=== PATIENT | female | born 1955 | race Caucasian/White ===

== ENCOUNTER → 2016-09-17 | Outpatient (CLI) | payer MEDICARE, BC, OTHER | LOC: RAD 12:22 | PROVIDERS: ATTEND Anesthesiology | DX: M54.5 Low back pain (principal); D18.09 Hemangioma of other sites | CPT/HCPCS: 72146 ==

== ENCOUNTER 2016-10-26 02:43 | Inpatient (IN) | payer MEDICARE, BC, OTHER ==
[2016-10-26] MEDS ORDERED: NORMAL SALINE 1000 ML 1,000 ML IV PRN (02:51)
--- NOTE | 2016-10-26 02:54 | ER Document Report ---
ED General - General Chief Complaint: Altered Mental Status Stated Complaint: ALTERED MENTAL STATUS Time Seen by Provider: 10/26/16 02:51 Notes: Patient is a 61-year-old female who presents with complaints of altered mental status. She was admitted recently to [facility]. At that time she was admitted because she was having some difficulty breathing and hypotension. While she was admitted she did bump her cardiac enzymes. They did do a cardiac catheter which was negative and she did not require any stenting. Patient was eventually discharged just under a week ago. says that since discharge she has continued to gradually worsen her mental status. He said tonight hermit status became even worse therefore called a months. Plan was arrived patient was found to be poorly responsive and to have a very thready pulse and was hypotensive. They started giving the patient IV fluid boluses and brought her straight to the ER. He said in route the patient started to awaken somewhat IV but boluses. She does try to talk some but does not make a lot of sense. Currently the patient follows all my commands properly. She is awake and alert. She does have some difficulty speaking. says the difficulty speaking has been ongoing for over a day. She is not on any blood thinning medications. He does not think she had a fever at home. TRAVEL OUTSIDE OF THE [place] IN LAST 30 DAYS: No - Related Data Allergies/Adverse Reactions: ciprofloxacin [From Cipro] Allergy (Verified 03/25/16 15:43) haloperidol [From Haldol] Allergy (Verified 03/25/16 15:43) levofloxacin [From Levaquin] Allergy (Verified 03/25/16 15:43) quetiapine [From Seroquel] Allergy (Verified 03/25/16 15:43) Home Medications: Current Home Medications Albuterol Sulfate [Proair HFA] 2 puff IH Q4HP PRN 10/26/16 [History] Aspirin [Aspirin 81 mg Chewable Tablet] 81 mg PO QAM 10/26/16 [History] Atorvastatin Calcium [Lipitor 80 mg Tablet] 80 mg PO QPM 10/26/16 [History] Cyanocobalamin (Vitamin B-12) [Vitamin B-12 Inj 1000 Mcg/1 ml Vial] 1,000 mcg IM .MONTHLY 10/26/16 [History] Cyclobenzaprine HCl [Flexeril 10 mg Tablet] 10 mg PO TIDP PRN 10/26/16 [History] Doxepin HCl [Silenor] 6 mg PO QHS 10/26/16 [History] Esomeprazole Mag Trihydrate [Nexium] 40 mg PO QAM 10/26/16 [History] Fluticasone/Salmeterol [Advair 500-50 Diskus 28 Dose] 1 inh IH Q12 10/26/16 [ History] Furosemide [Lasix] 20 mg PO DAILY 10/26/16 [History] Hydroxyzine Pamoate [Vistaril 50 mg Capsule] 50 mg PO Q6HP PRN 10/26/16 [History ] Levalbuterol Tartrate [Xopenex Hfa] 1 puff IH Q4HP PRN 10/26/16 [History] Linaclotide [Linzess] 145 mcg PO DAILY 10/26/16 [History] Lisinopril [Zestril] 2.5 mg PO DAILY 10/26/16 [History] Loratadine [Claritin 10 mg Tablet] 10 mg PO DAILY 10/26/16 [History] Losartan Potassium [Cozaar 50 mg Tablet] 50 mg PO DAILY 10/26/16 [History] Magnesium Oxide [Mag-Ox 400 mg Tablet] 400 mg PO DAILY 10/26/16 [History] Metformin HCl [Glucophage] 500 mg PO ACBRKFST 10/26/16 [History] Metoprolol Tartrate [Lopressor 25 mg Tablet] 25 mg PO Q12 10/26/16 [History] Montelukast Sodium [Singulair 10 mg Tablet] 10 mg PO DAILY 10/26/16 [History] Ondansetron HCl [Zofran] 8 mg PO TIDP PRN 10/26/16 [History] Potassium Chloride [K-Tab ER] 8 meq PO DAILY 10/26/16 [History] Pramipexole Di-HCl [Mirapex 0.5 Mg Tablet] 0.5 mg PO QHS 10/26/16 [History] Tizanidine HCl [Zanaflex 4 Mg Tablet] 4 mg PO Q6 10/26/16 [History] Tramadol HCl [Ultram] 100 mg PO BIDP PRN 10/26/16 [History] Past Medical History - Social History Smoking Status: Unknown if Ever Smoked Frequency of alcohol use: None Drug Abuse: None Family History: Reviewed & Not Pertinent - Past Medical History Cardiac Medical History: Reports: Hx Hypertension Pulmonary Medical History: Reports: Hx COPD Neurological Medical History: Reports: Hx Cerebrovascular Accident, Hx Seizures - Secondary to abrupt cessation of benzodiazepines Psychiatric Medical History: Reports: Hx Depression Past Surgical History: Reports: Hx Abdominal Surgery - gastric bypass, hernia repair, Hx Gastric Bypass Surgery, Hx Hysterectomy Review of Systems - Review of Systems Notes: My Normal Review Basic REVIEW OF SYSTEMS: CONSTITUTIONAL : Denies fever, chills, or sweats. Denies recent illness. EENT: Denies eye, ear, throat, or mouth pain or symptoms. Denies nasal or sinus congestion. CARDIOVASCULAR: Denies chest pain. RESPIRATORY: Some cough at home. GASTROINTESTINAL: Denies abdominal pain. Denies nausea, vomiting, or diarrhea. Denies constipation. Last BM: GENITOURINARY: Denies difficulty urinating, painful urination, burning, frequency, or blood in urine. MUSCULOSKELETAL: Denies neck or back pain or joint pain or swelling. SKIN: Denies rash or skin lesions. HEMATOLOGIC : Denies easy bruising or bleeding.. NEUROLOGICAL: Altered mental status. ALL OTHER SYSTEMS REVIEWED AND NEGATIVE. Physical Exam - Vital signs Vitals: Temp Pulse Resp BP Pulse Ox 100.8 F H 63 17 65/37 L 100 10/26/16 02:51 10/26/16 02:51 10/26/16 02:51 10/26/16 02:51 10/26/16 02:51 - Notes Notes: General Appearance: Awake and alert but weak appearing. Patient tries to talk but most words do not make sense. Vitals: reviewed, See vital signs table. Head: no swelling or tenderness to the head Eyes: PERRL, EOMI, Conjuctiva clear Mouth: No decreasd moisture Neck: Supple, no neck tenderness, No thyromegaly Lungs: No wheezing, No rales, No rhonci, No accessory muscle use, good air exchange bilaterally. Heart: Normal rate, Regular rythm, No murmur, no rub Abdomen: Normal BS, soft, No rigidity, No abdominal tenderness, No guarding, no rebound, no abdominal masses, no organomegaly Extremities: strength 5/5 in all extremities, good pulses in all extremities, no swelling or tenderness in the extremities, no edema. Skin: warm, dry, appropriate color, no rash Neuro: Speech is somewhat garbled. Patient does follow commands appropriately. She has good strength in all 4 extremities. Cranial nerves II through XII are intact. Course - Re-evaluation Re-evalutation: 10/26/16 03:45 Patient has to hypotension despite fluid boluses. She does have some JVD. I did do a bedside ultrasound looking for evidence pericardial effusion. I do not see evidence of obvious large cardiac effusion onbedside ultrasound. I did do a quick portable chest x-ray. This no evidence pneumothorax. I have just placed a central line. We have started patient the Levophed. Patient's blood pressure is responding well to Levophed. Her potassium is elevated. We have given her calcium gluconate. I also ordered insulin glucose as well as bicarbonate. 10/26/16 05:46 Now the patient's blood pressures improved with the pressors she is awake and alert and able answer all questions properly. She denies any pain. She denies headache or neck stiffness. She didn't tell me exactly where she is at her name and what day it is. She clear 5 the as well that this is happened to her a few times in the past. She will get very low blood pressure and confused. She says sometimes his right pneumonia. Other times related to urinary tract infection. Currently I do not see evidence of pneumonia or UTI. We will cover broad-spectrum antibiotics because she does have a low-grade fever in conjunction with the hypotension. I do not feel she is a lumbar puncture as her symptoms have been gradually worsening over several days and she currently has no altered mental status and is able to answer questions appropriately and denies headache or neck pain. - Vital Signs Vital signs: Temp Pulse Resp BP Pulse Ox 98.1 F 94 21 H 98/55 L 99 10/26/16 23:44 10/26/16 20:00 10/26/16 22:37 10/26/16 22:34 10/26/16 22:37 - Laboratory Result Diagrams: 10/26/16 02:55 10/26/16 15:25 Laboratory results interpreted by me: 10/26/16 10/26/16 10/26/16 02:55 02:55 02:55 WBC 11.1 H RBC 3.31 L Hgb 10.1 L Hct 30.0 L Lymphocytes % (Manual) 10 L Abs Neuts (Manual) 8.9 H Sodium 131.6 L Potassium 6.7 H* Chloride Carbon Dioxide 19 L BUN 41 H Creatinine 1.95 H Est GFR ( Amer) 32 L Est GFR (Non-Af Amer) 26 L Calcium 7.6 L AST 46 H Creatine Kinase 230 H CK-MB (CK-2) 11.00 H Total Protein 5.1 L Albumin 2.4 L Urine Glucose (UA) 10/26/16 10/26/16 05:14 06:20 WBC RBC Hgb Hct Lymphocytes % (Manual) Abs Neuts (Manual) Sodium 134.5 L Potassium Chloride 108 H Carbon Dioxide 19 L BUN 33 H Creatinine 1.53 H Est GFR ( Amer) 42 L Est GFR (Non-Af Amer) 35 L Calcium 8.3 L AST Creatine Kinase CK-MB (CK-2) Total Protein Albumin Urine Glucose (UA) 50 H - EKG Interpretation by Me Additional EKG results interpreted by me: 10/26/16 02:53 EKG is reviewed and interpreted by me. EKG shows normal sinus rhythm with rate of [address] segment elevation or depression. Patient does have some T- wave inversions in the lateral leads including I, aVL, and V6. MA interval, QRS duration, QTC intervals are within normal range. Old EKG for comparison is from 10/15/2015. 10/26/16 02:55 - Transfer of Care Notes: 10/26/16 06:23 Patient is much improved appearing. She is awake alert and answering all questions properly. Her repeat chest x-ray shows evidence of possible pneumonia. I will treat her as such. I did speak with the hospitalist who agrees to admit the patient. Dictation of this chart was performed using voice recognition software; therefore, there may be some unintended grammatical errors. 10/27/16 01:47 Procedures - Central Line Left Internal jugular Consent obtained: Yes - emergent Central line pre-insertion: Sterile PPE donned, Chloraprep applied, Sterile drapes applied Anesthetic type: 1% Lidocaine mL's of anesthesia: 3 CM at insertion site: 17 Line secured with sutures: Yes Central line post-insertion: Blood return from lumens, Biopatch applied, Sutured , Sterile dressing applied, Position confirmed w/ CXR Number of attempts: 1 Complications: No Critical Care Note - Critical Care Note Total time excluding time spent on procedures (mins): 45 Comments: Critical care time for this patient not including time spent on procedures approximately 45 minutes due to recurrent evaluations and treatment of hypotension and hyperkalemia. Discharge - Discharge Clinical Impression: Hyperkalemia Pneumonia Qualifiers: Pneumonia type: due to unspecified organism Laterality: unspecified laterality Lung location: unspecified part of lung Qualified Code(s): J18.9 - Pneumonia, unspecified organism Hypotension Qualifiers: Hypotension type: unspecified hypotension type Qualified Code(s): I95.9 - Hypotension, unspecified Condition: Stable Disposition: ADMITTED INPATIENT Admitting Provider: Hospitalist Unit Admitted: ICU
[2016-10-26] MEDS ORDERED: DEXTROSE 5%-WATER 250 ML with NOREPINEPHRINE BITARTRATE 4 MG IV PRN ×4 (03:14→07:52)
[2016-10-26] MEDS ORDERED: NOREPINEPHRINE BITARTRATE INJ/PF 4 MG/4 ML SDV IV ONE (03:16)
[2016-10-26 03:25] LABS: ALANINE AMINOTRANSFERASE 37 U/L (9-52); ALBUMIN 2.4 g/dL (3.5-5.0); ALKALINE PHOSPHATASE 73 U/L (38-126); ANION GAP 10 (5-19); ASPARTATE AMINO TRANSFERASE 46 U/L (14-36); BILIRUBIN,DIRECT 0.4 mg/dL (0.0-0.4); BILIRUBIN,TOTAL 0.5 mg/dL (0.2-1.3); BLOOD UREA NITROGEN 41 mg/dL (7-20); CALCIUM 7.6 mg/dL (8.4-10.2); CARBON DIOXIDE 19 mmol/L (22-30); CHLORIDE 103 mmol/L (98-107); CREATINE KINASE 230 U/L (30-135); CREATININE RESULT 1.95 mg/dL (0.52-1.25); GLUCOSE 85 mg/dL (75-110); SODIUM 131.6 mmol/L (137-145); TOTAL PROTEIN 5.1 g/dL (6.3-8.2)
[2016-10-26 03:30] LABS: POTASSIUM 6.7 mmol/L (3.6-5.0)
[2016-10-26] MEDS ORDERED: CALCIUM GLUCONATE 1000 MG/10 ML INJ IV ONE (03:32)
[2016-10-26 03:41] LABS: TROPONIN I 0.045 ng/mL
[2016-10-26] MEDS ORDERED: DEXTROSE 50%-WATER 25 GM/50 ML DISP.SYRIN IV ONE (03:44)
[2016-10-26] MEDS ORDERED: INSULIN REG, HUMAN 100 UNIT/ML 3 ML VIAL (PYX) IV ONE (03:44)
[2016-10-26] MEDS ORDERED: SODIUM BICARBONATE 8.4% INJ 50 MEQ/50 ML DISP.SYRIN IV ONE (03:45)
[2016-10-26 03:49] LABS: HEMOGLOBIN 10.1 g/dL (12.0-15.5); HGB HCT DIFFERENCE 0.3; MEAN CORPUSCULAR HEMOGLOBIN 30.3 pg (27.0-33.4); MEAN CORPUSCULAR HGB CONC 33.5 g/dL (32.0-36.0); MEAN CORPUSCULAR VOLUME 91 fl (80-97); RED BLOOD COUNT 3.31 10^6/uL (3.72-5.28); RED CELL DISTRIBUTION WIDTH 13.5 % (11.5-14.0); WHITE BLOOD COUNT 11.1 10^3/uL (4.0-10.5)
[2016-10-26 03:52] LABS: BAND NEUTROPHILS % (MANUAL) 5 % (3-5); BASOPHILS % (MANUAL) 0 % (0-2); EOSINOPHILS % (MANUAL) 0 % (0-6); LYMPHOCYTES % (MANUAL) 10 % (13-45); TOTAL CELLS COUNTED 100
[2016-10-26 03:53] LABS: RBC MORPHOLOGY COMMENT NORMO-CYTIC/CHROMIC; TOXIC GRANULATION 1+; TOXIC VACUOLATION PRESENT
[2016-10-26 05:33] LABS: APPEARANCE,URINE CLEAR; BILIRUBIN,URINE NEGATIVE (NEGATIVE); GLUCOSE, URINE 50 mg/dL (NEGATIVE); KETONES,URINE NEGATIVE (NEGATIVE); LEUKOCYTE ESTERASE,URINE NEGATIVE (NEGATIVE); NITRITE,URINE NEGATIVE (NEGATIVE); PROTEIN,URINE NEGATIVE (NEGATIVE); URINE SPECIFIC GRAVITY 1.004; UROBILINOGEN,URINE NEGATIVE mg/dL (<2.0)
[2016-10-26] MEDS ORDERED: CEFTRIAXONE INJ 1000 MG VIAL IV ONE (05:43)
[2016-10-26] MEDS ORDERED: PIPERACILLIN/TAZOBACTAM 3.375 GM VIAL IV ONE (05:45)
[2016-10-26] MEDS ORDERED: VANCOMYCIN HCL INJ 1000 MG VIAL IV ONE (05:46)
[2016-10-26 06:43] LABS: ANION GAP 8 (5-19); BLOOD UREA NITROGEN 33 mg/dL (7-20); CALCIUM 8.3 mg/dL (8.4-10.2); CARBON DIOXIDE 19 mmol/L (22-30); CHLORIDE 108 mmol/L (98-107); CREATININE RESULT 1.53 mg/dL (0.52-1.25); GLUCOSE 100 mg/dL (75-110); SODIUM 134.5 mmol/L (137-145)
[2016-10-26 06:50] LABS: POTASSIUM 4.9 mmol/L (3.6-5.0)
[2016-10-26] MEDS ORDERED: GUAIFENESIN SYRP 200 MG/10 ML UDC PO PRN (07:42)
[2016-10-26] MEDS ORDERED: ALBUTEROL SULFATE 0.083% NEB 2.5 MG/3 ML AMPUL NEB PRN (07:42)
[2016-10-26] MEDS ORDERED: GLUCAGON,HUMAN RECOMB 1 MG INJ IM PRN (07:45)
[2016-10-26] MEDS ORDERED: DEXTROSE 40% GEL 15 GM TUBE PO PRN ×2 (07:45)
[2016-10-26] MEDS ORDERED: DEXTROSE 50%-WATER 25 GM/50 ML DISP.SYRIN IV PRN ×2 (07:45)
[2016-10-26] MEDS ORDERED: VANCOMYCIN HCL 0 MG in DEXTROSE 5%-WATER 250 ML IV NR (08:00)
[2016-10-26] MEDS ORDERED: PHARMACY COMMUNICATION ORDER MC SCH (08:00)
[2016-10-26] MEDS ORDERED: NORMAL SALINE 1000 ML 1,000 ML IV ONE (08:29)
[2016-10-26 09:03] LABS: ADD ON TESTING BLD IN LAB ACKNOWLEDGE
[2016-10-26] MEDS: FAMOTIDINE INJ/PF 20 MG/2 ML SDV IV SCH (09:08)
[2016-10-26] MEDS: METHYLPREDNISOLONE INJ 40 MG/1 ML SDV IV SCH ×2 (09:09→17:17)
[2016-10-26] MEDS: IPRATROPIUM/ALBUTEROL 0.5-2.5 MG/3 ML AMPUL NEB SCH ×3 (09:10→19:57)
[2016-10-26 09:51] LABS: CREATINE KINASE MB 11.1 ng/mL (<4.55); TROPONIN I 0.036 ng/mL
[2016-10-26] MEDS ORDERED: AZITHROMYCIN 500 MG in DEXTROSE 5%-WATER 250 ML IV SCH (10:00)
[2016-10-26 10:09] LABS: MAGNESIUM 1.6 mg/dL (1.6-2.3)
--- NOTE | 2016-10-26 10:09 | PDOC H&P ---
History of Present Illness Admission Date/PCP: 10/26/16 06:41 STEPHY MARTINEZ, [facility] Patient complains of: altered mental status History of Present Illness: ANNA JOHNSON is a 61 year old female with underlying COPD, and a somewhat complicated recent medical history who presents to the emergency room for evaluation of above complaint. Patient has been discussed with emergency room physician who evaluated the patient. According to emergency room staff, including physician, along with , who is present at her side with her approval, patient has dramatically improved after IV fluid and vasopressor infusion, raising her blood pressure to a much more acceptable level. While she doesn't remember the events that led to her coming to the emergency room, she is much more cognizant of her chronic medical issues. Hospitalized at [facility] the through the of last month with final diagnoses including likely Takotsubo cardiomyopathy, and possible Type 2 NSTEMI, with echocardiogram revealing a 25-30% ejection fraction , and cardiac catheterization revealing basically clean vessels, and an ejection fraction of 37%. She was admitted at that time for dizziness lightheadedness, presyncope and syncopal episodes, along with a fever of 102.1. History and physical and discharge summary have been reviewed. Since that hospital stay she has had gradually worsening mental status, with intermittent confusion and decreased responsiveness. The evening of the , she was noted to be quite poorly responsive. Upon EMS arrival, was noted to have a thready pulse with hypotension. Blood Pressure and mental status improved somewhat with intravenous fluid boluses en route to the ER, and, as noted above, her overall clinical appearance and responsiveness have improved quite remarkably with above treatment. She's had nausea and vomiting 2 over the last day or so. No diarrhea or dysuria, chest or abdominal pain. No fever or chills. She does describe a several day history of a gradually worsening cough, productive of green sputum. She has when necessary nasal cannula oxygen at home , 2-4 L. She is currently resting quietly, complaining of only persistence of her mild chronic back pain. Laboratory results are listed in [employer] and are reviewed. X-ray summary results are listed below, with full report(s) reviewed. . EKG reviewed. And compared to a tracing from October 14 of last year. Social history/personal habits: . Has children. Retired. No use of alcohol tobacco or illicit drugs. Allergies/adverse reactions are listed in [employer] and are reviewed. Home medications Home medications initially autopopulated into [employer] may not accurately reflect patient's true medications, dosages, and/or frequencies. cardiac cath tech to reconcile medications. Unfortunately, patient uncertain of all her medications/dosages/frequencies. REVIEW OF SYSTEMS: See history and present illness. No further information available this point in time. PHYSICAL EXAMINATION: 5 feet 2 inches tall. 65.1 kg. Blood pressure 96/55, with Levophed at 10 mcg/ m. She has received 2-1/2 L of crystalloid. Pulse 76 and regular. 99% saturation on 2 L oxygen per nasal cannula. Respirations are 23 and unlabored. Temperature 97.9; 100.8 earlier during her ER visit. Slightly overweight, otherwise well-nourished well-developed though somewhat chronically ill-appearing female who appears perhaps a bit older than her stated age. Appears somewhat fatigued. Appears to feel a bit under the weather, so to speak. Pleasant awake alert and cooperative otherwise. Mildly anxious, without agitation. is present at her side; patient approves. Female emergency room nurse Jennifer is present. Skin is warm and dry. No grossly obvious evidence of rash in areas of skin examined. No subcutaneous nodules palpated. ENT: Hearing grossly normal to normal conversation. Tongue midline on protrusion pink and slightly tacky. Eyes: No scleral icterus. Pupils equal and reactive to light at 4 mm. Berthold conjunctivae. Raccoon eyes. Neck is supple and nontender to gentle active range of motion and palpation. Midline trachea. No palpable thyroid nodule mass enlargement or tenderness. Lymphatic: No palpable cervical or clavicular nodes. Neck and lymphatic exams limited by patient body habitus. Exam also limited by intravenous catheters, including a right external jugular and left internal jugular central line, with their associated dressings. Psychiatric: Reasonable insight into chronic medical issues. . See history and present illness. Lungs: Auscultation reveals equal breath sounds bilaterally. No use of accessory respiratory muscles. Has bilateral coarse breath sounds, more prominent on the left. Cardiovascular: Heart regular rate and rhythm, without gallop murmur or rub. No abdominal aortic bruits. No ankle or pedal edema. Faintly palpable dorsalis pedis pulses. Not able to evaluate for carotid bruit due to above- noted central lines with associated dressings. Abdomen: soft, slightly, distended nontender with positive bowel sounds. Unable to adequately evaluate abdomen for masses or organomegaly due to distention. Extremities: Feet are warm and dry. No calf tenderness to compression. No grossly obvious visual evidence of calf swelling. Gentle manipulation of lower extremities fails to reveal any obvious evidence of injury or instability to knees hips or ankles. Neurologic: Moves upper extremities grossly normally. Patellar reflexes absent. Absent Babinski. Light touch is intact at feet. Dorsiflexion and plantarflexion of feet 5 / 5 and symmetric. Past Medical History Cardiac Medical History: Reports: Congestive Heart Failure, Myocardial Infarction, Hypertension Denies: DVT, Hyperlipidema, Pulmonary Embolism Pulmonary Medical History: Reports: Chronic Obstructive Pulmonary Disease (COPD) , Sleep Apnea - Can't use CPAP due to underlying achalasia. EENT Medical History: Reports: Eyes - Glasses, Ears - Partial hearing loss Denies: Throat Neurological Medical History: Reports: Ischemic CVA - Uncertain if residual after effects., Seizures - Secondary to abrupt cessation of benzodiazepines and/ or use of Haldol. Denies: Hemorrhagic CVA Endocrine Medical History: Reports: Diabetes Mellitus Type 2 Denies: Diabetes Mellitus Type 1, Hyperthyroidism, Hypothyroidism Renal/ Medical History: Reports: Other - Frequent urinary tract infections. 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 Denies: Hepatitis B, Hepatitis C Past Surgical History Past Surgical History: Reports: Gastric Bypass Surgery, Hysterectomy Social History Information Source: Patient, Relative - , Emergency Med Personnel, [facility] Records Lives with: Spouse/Significant other Smoking Status: Unknown if Ever Smoked Frequency of Alcohol Use: None Drugs: None Hx Prescription Drug Abuse: No - Advance Directive Resuscitation Status: Full Code Surrogate healthcare decision maker:: Family History Family History: Reviewed & Not Pertinent Parental Family History Reviewed: Yes - father in an accident; mother of heart attack. Children Family History Reviewed: Yes - Son with testicular cancer. Sibling(s) Family History Reviewed.: Yes - Brother with diabetes mellitus Medication/Allergy Home Medications: Albuterol Sulfate [Proair HFA] 2 puff IH Q4HP PRN 10/26/16 Aspirin [Aspirin 81 mg Chewable Tablet] 81 mg PO QAM 10/26/16 Atorvastatin Calcium [Lipitor 80 mg Tablet] 80 mg PO QPM 10/26/16 Cyanocobalamin (Vitamin B-12) [Vitamin B-12 Inj 1000 Mcg/1 ml Vial] 1,000 mcg IM .MONTHLY 10/26/16 Cyclobenzaprine HCl [Flexeril 10 mg Tablet] 10 mg PO TIDP PRN 10/26/16 Doxepin HCl [Silenor] 6 mg PO QHS 10/26/16 Esomeprazole Mag Trihydrate [Nexium] 40 mg PO QAM 10/26/16 Fluticasone/Salmeterol [Advair 500-50 Diskus 28 Dose] 1 inh IH Q12 10/26/16 Furosemide [Lasix] 20 mg PO DAILY 10/26/16 Hydroxyzine Pamoate [Vistaril 50 mg Capsule] 50 mg PO Q6HP PRN 10/26/16 Levalbuterol Tartrate [Xopenex Hfa] 1 puff IH Q4HP PRN 10/26/16 Linaclotide [Linzess] 145 mcg PO DAILY 10/26/16 Lisinopril [Zestril] 2.5 mg PO DAILY 10/26/16 Loratadine [Claritin 10 mg Tablet] 10 mg PO DAILY 10/26/16 Losartan Potassium [Cozaar 50 mg Tablet] 50 mg PO DAILY 10/26/16 Magnesium Oxide [Mag-Ox 400 mg Tablet] 400 mg PO DAILY 10/26/16 Metformin HCl [Glucophage] 500 mg PO ACBRKFST 10/26/16 Metoprolol Tartrate [Lopressor 25 mg Tablet] 25 mg PO Q12 10/26/16 Montelukast Sodium [Singulair 10 mg Tablet] 10 mg PO DAILY 10/26/16 Ondansetron HCl [Zofran] 8 mg PO TIDP PRN 10/26/16 Potassium Chloride [K-Tab ER] 8 meq PO DAILY 10/26/16 Pramipexole Di-HCl [Mirapex 0.5 Mg Tablet] 0.5 mg PO QHS 10/26/16 Tizanidine HCl [Zanaflex 4 Mg Tablet] 4 mg PO Q6 10/26/16 Tramadol HCl [Ultram] 100 mg PO BIDP PRN 10/26/16 Allergies/Adverse Reactions: ciprofloxacin [From Cipro] Allergy (Verified 03/25/16 15:43) haloperidol [From Haldol] Allergy (Verified 03/25/16 15:43) levofloxacin [From Levaquin] Allergy (Verified 03/25/16 15:43) quetiapine [From Seroquel] Allergy (Verified 03/25/16 15:43) Physical Exam Vital Signs: Temp Pulse Resp BP Pulse Ox 97.9 F 63 17 98/59 L 99 10/26/16 04:00 10/26/16 02:51 10/26/16 05:33 10/26/16 05:31 10/26/16 05:33 Results Impressions: Head CT 10/26/16 02:52 IMPRESSION: NORMAL BRAIN CT WITHOUT CONTRAST. Chest X-Ray 10/26/16 04:25 IMPRESSION: Mild mixed interstitial and airspace opacity may indicate pulmonary edema or pneumonia. Left central line. Assessment & Plan - Diagnosis (1) ARF (acute renal failure) Qualifiers: Acute renal failure type: unspecified Qualified Code(s): N17.9 - Acute kidney failure, unspecified Is this a current diagnosis for this admission?: YesPlan: Likely combination of dehydration along with hypotension. IV fluids. Serial chemistry. (2) COPD exacerbation Is this a current diagnosis for this admission?: YesPlan: Solu-Medrol. (3) History of non-ST elevation myocardial infarction (NSTEMI) Is this a current diagnosis for this admission?: YesPlan: Serial troponin. Results to be called today hospitalist. (4) Hyperkalemia Is this a current diagnosis for this admission?: YesPlan: Resolving nicely with treatment. Serial chemistry. (5) Pneumonia Qualifiers: Pneumonia type: due to unspecified organism Laterality: unspecified laterality Lung location: unspecified part of lung Qualified Code(s) : J18.9 - Pneumonia, unspecified organism Is this a current diagnosis for this admission?: YesPlan: Patient will be admitted under COPD exacerbation and pneumonia protocol. Incentive spirometry twice a day. Scheduled DuoNeb's. PRN albuterol nebs Solu-Medrol IV Pepcid for gastritis prophylaxis. Antibiotics will consist of intravenous Zithromax and vancomycin, along with Zosyn. Pharmacy to assist with dosing.. I strongly encouraged patient to notify staff should patient feel that her breathing is worsening. Patient is a full code. I have strongly encouraged patient not to get out of bed , , to avoid a fall with injury. Knee high SCDs for DVT prophylaxis, along with subcutaneous heparin. Impression and plans were discussed with patient, and , both of whom concur. Time spent in evaluation and management of patient: 95 critical care minutes. (6) Septic shock Is this a current diagnosis for this admission?: Yes (7) Takotsubo cardiomyopathy Is this a current diagnosis for this admission?: Yes (8) Anemia Qualifiers: Anemia type: unspecified type Qualified Code(s): D64.9 - Anemia, unspecified Is this a current diagnosis for this admission?: YesPlan: Follow-up CBC with differential. No need for transfusion at present time. (9) History of MRSA infection Is this a current diagnosis for this admission?: YesPlan: Contact precautions - Inpatient Certification Based on my medical assessment, after consideration of the patient's comorbidities, presenting symptoms, or acuity I expect that the services needed warrant INPATIENT care.: Yes I certify that my determination is in accordance with my understanding of Medicare's requirements for reasonable and necessary INPATIENT services [42 CFR 412.3e].: Yes Medical Necessity: Need Close Monitoring Due to Risk of Patient Decompensation, Need For IV Fluids, Need For Continuous Telemetry Monitoring, Need for IV Antibiotics, Risk of Diagnosis Which Will Require Inpatient Eval/Care/Monitoring Post Hospital Care: D/C or Transfer Summary
[2016-10-26] MEDS: NORMAL SALINE 1000 ML 1,000 ML IV PRN ×3 (10:23→21:01)
[2016-10-26] MEDS ORDERED: HEPARIN SOD (PORCINE) 5,000 UNIT/ML 1 ML SYRINGE SUBCUT ONE (10:30)
--- NOTE | 2016-10-26 10:35 | PDOC PROGRESS REPORT ---
Subjective Progress Note for:: 10/26/16 Subjective:: Complains of shortness of breath Physical Exam Vital Signs: Temp Pulse Resp BP Pulse Ox 97.9 F 63 20 131/80 H 96 10/26/16 04:00 10/26/16 02:51 10/26/16 09:46 10/26/16 09:46 10/26/16 09:46 General appearance: PRESENT: no acute distress Eye exam: PRESENT: conjunctiva pink. ABSENT: scleral icterus Mouth exam: PRESENT: moist, tongue midline Neck exam: ABSENT: JVD Respiratory exam: PRESENT: rales - Bibasilar rails. ABSENT: rhonchi, wheezes Cardiovascular exam: PRESENT: tachycardia. ABSENT: diastolic murmur, rubs, systolic murmur GI/Abdominal exam: PRESENT: normal bowel sounds, soft. ABSENT: distended, guarding, mass, organolmegaly, rebound, tenderness Extremities exam: ABSENT: calf tenderness, clubbing, pedal edema Neurological exam: PRESENT: alert, awake, oriented to person, oriented to place , oriented to time, oriented to situation, CN II-XII grossly intact. ABSENT: motor sensory deficit Psychiatric exam: PRESENT: appropriate affect Skin exam: PRESENT: dry, intact, warm. ABSENT: cyanosis, rash Results Laboratory Results: 10/26/16 08:54 Magnesium 1.6 10/26/16 10/26/16 08:54 08:54 Creatine Kinase 347 H CK-MB (CK-2) 11.10 H Troponin I 0.036 Impressions: Head CT 10/26/16 02:52 IMPRESSION: NORMAL BRAIN CT WITHOUT CONTRAST. Chest X-Ray 10/26/16 04:25 IMPRESSION: Mild mixed interstitial and airspace opacity may indicate pulmonary edema or pneumonia. Left central line. Assessment & Plan - Diagnosis (1) Septic shock Is this a current diagnosis for this admission?: YesPlan: Patient has septic shock from pneumonia. Patient has been started on vancomycin and Zosyn. Continue IV fluids and vasopressors. (2) Pneumonia Qualifiers: Pneumonia type: due to unspecified organism Laterality: unspecified laterality Lung location: unspecified part of lung Qualified Code(s) : J18.9 - Pneumonia, unspecified organism Is this a current diagnosis for this admission?: YesPlan: Patient has been started on vancomycin and Zosyn. (3) ARF (acute renal failure) Qualifiers: Acute renal failure type: unspecified Qualified Code(s): N17.9 - Acute kidney failure, unspecified Is this a current diagnosis for this admission?: YesPlan: Secondary to sepsis. We'll continue the IV fluids and closely monitor her creatinine. (4) COPD exacerbation Is this a current diagnosis for this admission?: YesPlan: Continue with nebulizers and steroids. (5) Takotsubo cardiomyopathy Is this a current diagnosis for this admission?: YesPlan: Patient had recent heart catheterization that showed normal coronary arteries. (6) Anemia Qualifiers: Anemia type: unspecified type Qualified Code(s): D64.9 - Anemia, unspecified Is this a current diagnosis for this admission?: YesPlan: We'll continue to monitor hemoglobin. - Time Time Spent with patient: 25-34 minutes - Inpatient Certification Medical Necessity: Need For IV Fluids, Need for IV Antibiotics - Plan Summary Plan Summary: Patient is admitted to intensive care unit.
[2016-10-26] MEDS ORDERED: AZITHROMYCIN 500 MG in DEXTROSE 5%-WATER 250 ML IV ONE (11:00)
[2016-10-26] MEDS: PIPERACILLIN SODIUM/TAZOBACTAM 4.5 GM in NORMAL SALINE 100 ML IV SCH ×3 (12:43→23:39)
[2016-10-26 15:53] LABS: ANION GAP 11 (5-19); BLOOD UREA NITROGEN 23 mg/dL (7-20); CALCIUM 8.1 mg/dL (8.4-10.2); CARBON DIOXIDE 18 mmol/L (22-30); CHLORIDE 110 mmol/L (98-107); CREATINE KINASE 274 U/L (30-135); CREATININE RESULT 0.96 mg/dL (0.52-1.25); GLUCOSE 148 mg/dL (75-110); SODIUM 139.4 mmol/L (137-145)
[2016-10-26 16:00] LABS: CREATINE KINASE MB 8.48 ng/mL (<4.55)
[2016-10-26 16:04] LABS: TROPONIN I 0.027 ng/mL
[2016-10-26 16:13] LABS: POTASSIUM 3.7 mmol/L (3.6-5.0)
--- NOTE | 2016-10-26 16:59 | EKG REPORT ---
SEVERITY:- ABNORMAL ECG - SINUS RHYTHM ABNORMAL T, CONSIDER ISCHEMIA, LATERAL LEADS : Confirmed by: Justa Guaman 26-Oct-2016 16:58:49
[2016-10-26] MEDS: ACETAMINOPHEN 325 MG TABLET PO PRN (19:48)
[2016-10-26] MEDS: HEPARIN SOD (PORCINE) 5,000 UNIT/ML 1 ML SYRINGE SUBCUT SCH (21:01)
[2016-10-27] MEDS: NORMAL SALINE 1000 ML 1,000 ML IV PRN ×2 (01:29→05:52)
[2016-10-27] MEDS: METHYLPREDNISOLONE INJ 40 MG/1 ML SDV IV SCH ×3 (01:30→17:39)
[2016-10-27] MEDS: PIPERACILLIN SODIUM/TAZOBACTAM 4.5 GM in NORMAL SALINE 100 ML IV SCH ×3 (05:51→17:39)
[2016-10-27 05:58] LABS: ANION GAP 9 (5-19); BLOOD UREA NITROGEN 14 mg/dL (7-20); CALCIUM 7.9 mg/dL (8.4-10.2); CARBON DIOXIDE 19 mmol/L (22-30); CHLORIDE 115 mmol/L (98-107); CREATININE RESULT 0.75 mg/dL (0.52-1.25); GLUCOSE 142 mg/dL (75-110); POTASSIUM 3.2 mmol/L (3.6-5.0); SODIUM 143.1 mmol/L (137-145)
[2016-10-27 06:04] LABS: HEMOGLOBIN 10.1 g/dL (12.0-15.5); HGB HCT DIFFERENCE 1.3; MEAN CORPUSCULAR HEMOGLOBIN 30.9 pg (27.0-33.4); MEAN CORPUSCULAR HGB CONC 34.9 g/dL (32.0-36.0); MEAN CORPUSCULAR VOLUME 89 fl (80-97); RED BLOOD COUNT 3.27 10^6/uL (3.72-5.28); RED CELL DISTRIBUTION WIDTH 13.9 % (11.5-14.0); WHITE BLOOD COUNT 6.4 10^3/uL (4.0-10.5)
[2016-10-27 06:21] LABS: BAND NEUTROPHILS % (MANUAL) 8 % (3-5); BASOPHILS % (MANUAL) 1 % (0-2); EOSINOPHILS % (MANUAL) 0 % (0-6); LYMPHOCYTES % (MANUAL) 4 % (13-45); TOTAL CELLS COUNTED 100
[2016-10-27 06:22] LABS: RBC MORPHOLOGY COMMENT NORMO-CYTIC/CHROMIC; TOXIC GRANULATION SLIGHT
[2016-10-27] MEDS: IPRATROPIUM/ALBUTEROL 0.5-2.5 MG/3 ML AMPUL NEB SCH ×3 (08:58→20:33)
[2016-10-27] MEDS: FAMOTIDINE INJ/PF 20 MG/2 ML SDV IV SCH (09:17)
[2016-10-27] MEDS: AZITHROMYCIN 500 MG in DEXTROSE 5%-WATER 250 ML IV SCH (09:17)
[2016-10-27] MEDS: HEPARIN SOD (PORCINE) 5,000 UNIT/ML 1 ML SYRINGE SUBCUT SCH ×2 (09:18→21:54)
[2016-10-27] MEDS ORDERED: VANCOMYCIN HCL 750 MG in DEXTROSE 5%-WATER 250 ML IV SCH (10:00)
--- NOTE | 2016-10-27 10:22 | PDOC PROGRESS REPORT ---
Subjective Progress Note for:: 10/27/16 Subjective:: Less short of breath today but does complain of cough. Physical Exam Vital Signs: Temp Pulse Resp BP Pulse Ox 98.1 F 105 H 19 120/77 100 10/27/16 08:00 10/27/16 08:58 10/27/16 08:58 10/27/16 08:00 10/27/16 08:00 Intake & Output 10/26/16 10/27/16 10/28/16 06:59 06:59 06:59 Intake Total 3190 Output Total 5250 100 Balance -2059 -100 Weight 67.3 kg General appearance: PRESENT: no acute distress Eye exam: PRESENT: conjunctiva pink. ABSENT: scleral icterus Mouth exam: PRESENT: moist, tongue midline Neck exam: ABSENT: JVD Respiratory exam: PRESENT: crackles - Basilar. ABSENT: rales, rhonchi, wheezes Cardiovascular exam: PRESENT: RRR. ABSENT: diastolic murmur, rubs, systolic murmur GI/Abdominal exam: PRESENT: normal bowel sounds, soft. ABSENT: distended, guarding, mass, organolmegaly, rebound, tenderness Extremities exam: ABSENT: calf tenderness, clubbing, pedal edema Neurological exam: PRESENT: alert, awake, oriented to person, oriented to place , oriented to time, oriented to situation, CN II-XII grossly intact. ABSENT: motor sensory deficit Psychiatric exam: PRESENT: appropriate affect Skin exam: PRESENT: dry, intact, warm. ABSENT: cyanosis, rash Results Laboratory Results: 10/27/16 05:40 10/27/16 05:40 10/26/16 10/27/16 10/27/16 15:25 05:40 05:40 WBC 6.4 RBC 3.27 L Hgb 10.1 L Hct 29.0 L MCV 89 MCH 30.9 MCHC 34.9 RDW 13.9 Plt Count 152 Seg Neutrophils % Not Reportable Lymphocytes % Not Reportable Monocytes % Not Reportable Eosinophils % Not Reportable Basophils % Not Reportable Absolute Neutrophils Not Reportable Absolute Lymphocytes Not Reportable Absolute Monocytes Not Reportable Absolute Eosinophils Not Reportable Absolute Basophils Not Reportable Sodium 139.4 143.1 Potassium 3.7 D 3.2 L Chloride 110 H 115 H Carbon Dioxide 18 L 19 L Anion Gap 11 9 BUN 23 H 14 Creatinine 0.96 0.75 Est GFR ( Amer) > 60 > 60 Est GFR (Non-Af Amer) 59 L > 60 Glucose 148 H 142 H Calcium 8.1 L 7.9 L 10/26/16 08:45 Sputum Gram Stain - Final 10/26/16 08:45 Sputum Sputum Culture - Final 10/26/16 10/26/16 10/26/16 08:54 08:54 15:25 Creatine Kinase 347 H 274 H CK-MB (CK-2) 11.10 H Troponin I 0.036 10/26/16 15:25 Creatine Kinase CK-MB (CK-2) 8.48 H Troponin I 0.027 Impressions: Head CT 10/26/16 02:52 IMPRESSION: NORMAL BRAIN CT WITHOUT CONTRAST. Chest X-Ray 10/26/16 04:25 IMPRESSION: Mild mixed interstitial and airspace opacity may indicate pulmonary edema or pneumonia. Left central line. Assessment & Plan - Diagnosis (1) Septic shock Is this a current diagnosis for this admission?: YesPlan: Patient has septic shock from pneumonia. Patient has been started on Zithromax and Zosyn. Continue IV fluids. Patient is currently off vasopressors and will be transferred to the floor. (2) Pneumonia Qualifiers: Pneumonia type: due to unspecified organism Laterality: unspecified laterality Lung location: unspecified part of lung Qualified Code(s) : J18.9 - Pneumonia, unspecified organism Is this a current diagnosis for this admission?: YesPlan: Patient has been started on Zithromax and Zosyn. (3) ARF (acute renal failure) Qualifiers: Acute renal failure type: unspecified Qualified Code(s): N17.9 - Acute kidney failure, unspecified Is this a current diagnosis for this admission?: YesPlan: Secondary to sepsis. This has resolved with IV fluids. (4) COPD exacerbation Is this a current diagnosis for this admission?: YesPlan: Continue with nebulizers and steroids. (5) Takotsubo cardiomyopathy Is this a current diagnosis for this admission?: YesPlan: Patient had recent heart catheterization recently that showed normal coronary arteries. (6) Anemia Qualifiers: Anemia type: unspecified type Qualified Code(s): D64.9 - Anemia, unspecified Is this a current diagnosis for this admission?: YesPlan: We'll continue to monitor hemoglobin. - Time Time Spent with patient: 25-34 minutes - Inpatient Certification Medical Necessity: Need For IV Fluids, Need for IV Antibiotics - Plan Summary Plan Summary: We'll transfer out of the ICU to the floor.
[2016-10-27] MEDS: INSULIN LISPRO 100 UNIT/ML 3 ML VIAL SUBCUT PRN (17:58)
[2016-10-27] MEDS ORDERED: BENZONATATE 100 MG CAPSULE PO PRN (18:10)
[2016-10-27] MEDS: TRAZODONE HCL 50 MG TABLET PO SCH (21:54)
[2016-10-27] MEDS: PRAMIPEXOLE DI-HCL 0.5 MG TABLET PO SCH (21:54)
[2016-10-28] MEDS: PIPERACILLIN SODIUM/TAZOBACTAM 4.5 GM in NORMAL SALINE 100 ML IV SCH ×5 (00:04→23:32)
[2016-10-28] MEDS: NORMAL SALINE 1000 ML 1,000 ML IV PRN ×3 (00:04→22:04)
[2016-10-28] MEDS: METHYLPREDNISOLONE INJ 40 MG/1 ML SDV IV SCH ×2 (02:47→09:29)
[2016-10-28 07:30] LABS: HEMATOCRIT 29.2 % (36.0-47.0); HEMOGLOBIN 10.2 g/dL (12.0-15.5); HGB HCT DIFFERENCE 1.4; MEAN CORPUSCULAR HEMOGLOBIN 30.5 pg (27.0-33.4); MEAN CORPUSCULAR HGB CONC 34.8 g/dL (32.0-36.0); MEAN CORPUSCULAR VOLUME 88 fl (80-97); RED BLOOD COUNT 3.33 10^6/uL (3.72-5.28); RED CELL DISTRIBUTION WIDTH 13.9 % (11.5-14.0); WHITE BLOOD COUNT 8.8 10^3/uL (4.0-10.5)
[2016-10-28 07:41] LABS: ANION GAP 11 (5-19); BLOOD UREA NITROGEN 12 mg/dL (7-20); CALCIUM 8.2 mg/dL (8.4-10.2); CARBON DIOXIDE 17 mmol/L (22-30); CHLORIDE 115 mmol/L (98-107); CREATININE RESULT 0.79 mg/dL (0.52-1.25); GLUCOSE 132 mg/dL (75-110); POTASSIUM 3.3 mmol/L (3.6-5.0)
[2016-10-28 08:28] LABS: BASOPHILS % (MANUAL) 0 % (0-2); EOSINOPHILS % (MANUAL) 0 % (0-6); LYMPHOCYTES % (MANUAL) 3 % (13-45); TOTAL CELLS COUNTED 100
[2016-10-28 08:29] LABS: BURR CELLS 2+; HYPOCHROMASIA SLIGHT; OVALOCYTES 2+; POIKILOCYTOSIS 3+; SCHISTOCYTES SLIGHT; TOXIC GRANULATION 1+
[2016-10-28] MEDS: IPRATROPIUM/ALBUTEROL 0.5-2.5 MG/3 ML AMPUL NEB SCH ×3 (08:48→20:08)
[2016-10-28] MEDS: HEPARIN SOD (PORCINE) 5,000 UNIT/ML 1 ML SYRINGE SUBCUT SCH ×2 (09:28→22:04)
[2016-10-28] MEDS: AZITHROMYCIN 500 MG in DEXTROSE 5%-WATER 250 ML IV SCH (09:29)
[2016-10-28] MEDS: FAMOTIDINE INJ/PF 20 MG/2 ML SDV IV SCH (09:29)
--- NOTE | 2016-10-28 10:25 | Physician Advisory Note ---
Physician Advisor ProgressNote .: [facility] medical record for this patient. Physician Advisor Statement: Very nice documentation of septic shock due to PNA, ARF due to sepsis. Possible documentation opportunities if attending agrees: 1. "Panlobar PNA, suspect due to " [GNeg given COPD? or ...] 2. "Acute hyponatremia, likely due to " [? PNA, or intravascular volume depletion, or .... ] 3. "Acute Metabolic Acidosis, likely due to ____" [sepsis?] 4. "chronic anemia, suspect due to " As always, if concerned about any unstable VS or abnormal labs, please comment on them & note what doing about them, & please document each day the potential clinical problems you are concerned could occur if pt not kept in hospital for tx at this time. Thanks for your help with documentation accuracy/specificity improvement! Ewelian Weinstein MD [facility] Physician Advisor, Fellow of Hospital Medicine
--- NOTE | 2016-10-28 10:46 | PDOC PROGRESS REPORT ---
Subjective Progress Note for:: 10/28/16 Subjective:: Complains of cough. Physical Exam Vital Signs: Temp Pulse Resp BP Pulse Ox 97.7 F 84 18 123/85 97 10/28/16 07:41 10/28/16 08:50 10/28/16 08:50 10/28/16 07:41 10/28/16 08:50 Intake & Output 10/27/16 10/28/16 10/29/16 06:59 06:59 06:59 Intake Total 3367 5007 Output Total 5550 450 Balance -2183 4557 Weight 67.3 kg 71.6 kg General appearance: PRESENT: no acute distress Eye exam: PRESENT: conjunctiva pink. ABSENT: scleral icterus Mouth exam: PRESENT: moist, tongue midline Neck exam: ABSENT: JVD Respiratory exam: PRESENT: rales - Bibasal respiratory Rales, wheezes - Bilateral expiratory wheezes.. ABSENT: rhonchi Cardiovascular exam: PRESENT: RRR. ABSENT: diastolic murmur, rubs, systolic murmur GI/Abdominal exam: PRESENT: normal bowel sounds, soft. ABSENT: distended, guarding, mass, organolmegaly, rebound, tenderness Extremities exam: ABSENT: calf tenderness, clubbing, pedal edema Neurological exam: PRESENT: alert, awake, oriented to person, oriented to place , oriented to time, oriented to situation, CN II-XII grossly intact. ABSENT: motor sensory deficit Psychiatric exam: PRESENT: appropriate affect Skin exam: PRESENT: dry, intact, warm. ABSENT: cyanosis, rash Results Laboratory Results: 10/28/16 06:10 10/28/16 06:10 10/28/16 10/28/16 06:10 06:10 WBC 8.8 RBC 3.33 L Hgb 10.2 L Hct 29.2 L MCV 88 MCH 30.5 MCHC 34.8 RDW 13.9 Plt Count 160 Seg Neutrophils % Not Reportable Lymphocytes % Not Reportable Monocytes % Not Reportable Eosinophils % Not Reportable Basophils % Not Reportable Absolute Neutrophils Not Reportable Absolute Lymphocytes Not Reportable Absolute Monocytes Not Reportable Absolute Eosinophils Not Reportable Absolute Basophils Not Reportable Sodium 143.0 Potassium 3.3 L Chloride 115 H Carbon Dioxide 17 L Anion Gap 11 BUN 12 Creatinine 0.79 Est GFR ( Amer) > 60 Est GFR (Non-Af Amer) > 60 Glucose 132 H Calcium 8.2 L 05/09/17 05/09/17 05/09/17 08:54 08:54 15:25 Creatine Kinase 347 H 274 H CK-MB (CK-2) 11.10 H Troponin I 0.036 10/26/16 15:25 Creatine Kinase CK-MB (CK-2) 8.48 H Troponin I 0.027 Impressions: Head CT 10/26/16 02:52 IMPRESSION: NORMAL BRAIN CT WITHOUT CONTRAST. Chest X-Ray 10/26/16 04:25 IMPRESSION: Mild mixed interstitial and airspace opacity may indicate pulmonary edema or pneumonia. Left central line. Assessment & Plan - Diagnosis (1) Septic shock Is this a current diagnosis for this admission?: YesPlan: Patient has septic shock from pneumonia. Patient has been started on Zithromax and Zosyn. Continue IV fluids. (2) Pneumonia Qualifiers: Pneumonia type: due to unspecified organism Laterality: unspecified laterality Lung location: unspecified part of lung Qualified Code(s) : J18.9 - Pneumonia, unspecified organism Is this a current diagnosis for this admission?: YesPlan: The patient has been lobar pneumonia. This most likely is infection with gram- negative rods given the clinical picture. Continue with Zithromax and Zosyn. (3) ARF (acute renal failure) Qualifiers: Acute renal failure type: unspecified Qualified Code(s): N17.9 - Acute kidney failure, unspecified Is this a current diagnosis for this admission?: YesPlan: Secondary to sepsis. This has resolved with IV fluids. (4) COPD exacerbation Is this a current diagnosis for this admission?: YesPlan: Continue with nebulizers and steroids. (5) Takotsubo cardiomyopathy Is this a current diagnosis for this admission?: YesPlan: Patient had recent heart catheterization recently that showed normal coronary arteries. (6) Anemia Qualifiers: Anemia type: unspecified type Qualified Code(s): D64.9 - Anemia, unspecified Is this a current diagnosis for this admission?: YesPlan: We'll continue to monitor hemoglobin. Most likely is anemia of chronic disease. (7) Hyponatremia Is this a current diagnosis for this admission?: YesPlan: Most likely secondary to the underlying pneumonia and sepsis. (8) Metabolic acidosis Is this a current diagnosis for this admission?: YesPlan: Acute metabolic acidosis most likely secondary to the sepsis. This is improved with IV fluids. - Time Time Spent with patient: 25-34 minutes - Inpatient Certification Medical Necessity: Need Close Monitoring Due to Risk of Patient Decompensation, Need For IV Fluids, Need for IV Antibiotics
[2016-10-28] MEDS: INSULIN LISPRO 100 UNIT/ML 3 ML VIAL SUBCUT PRN ×2 (12:32→22:04)
[2016-10-28] MEDS: METHYLPREDNISOLONE INJ 125 MG/2 ML SDV IV SCH (17:21)
[2016-10-28] MEDS: ACETAMINOPHEN 325 MG TABLET PO PRN (17:28)
[2016-10-28] MEDS: TRAZODONE HCL 50 MG TABLET PO SCH (22:03)
[2016-10-28] MEDS: PRAMIPEXOLE DI-HCL 0.5 MG TABLET PO SCH (22:03)
[2016-10-29] MEDS: METHYLPREDNISOLONE INJ 125 MG/2 ML SDV IV SCH ×3 (01:48→17:15)
[2016-10-29] MEDS: CODEINE SULF 15 MG TABLET PO PRN ×2 (02:29→22:09)
[2016-10-29] MEDS: PIPERACILLIN SODIUM/TAZOBACTAM 4.5 GM in NORMAL SALINE 100 ML IV SCH ×4 (06:03→23:45)
[2016-10-29 06:40] LABS: HEMATOCRIT 30.6 % (36.0-47.0); HEMOGLOBIN 10.2 g/dL (12.0-15.5); MEAN CORPUSCULAR HEMOGLOBIN 29.9 pg (27.0-33.4); MEAN CORPUSCULAR HGB CONC 33.4 g/dL (32.0-36.0); MEAN CORPUSCULAR VOLUME 90 fl (80-97); RED BLOOD COUNT 3.42 10^6/uL (3.72-5.28); RED CELL DISTRIBUTION WIDTH 13.8 % (11.5-14.0); WHITE BLOOD COUNT 10.6 10^3/uL (4.0-10.5)
[2016-10-29 06:47] LABS: ANION GAP 12 (5-19); BLOOD UREA NITROGEN 13 mg/dL (7-20); CALCIUM 8.3 mg/dL (8.4-10.2); CARBON DIOXIDE 16 mmol/L (22-30); CHLORIDE 112 mmol/L (98-107); CREATININE RESULT 0.94 mg/dL (0.52-1.25); GLUCOSE 123 mg/dL (75-110); POTASSIUM 3.1 mmol/L (3.6-5.0); SODIUM 139.8 mmol/L (137-145)
[2016-10-29 06:57] LABS: BAND NEUTROPHILS % (MANUAL) 1 % (3-5); BASOPHILS % (MANUAL) 0 % (0-2); EOSINOPHILS % (MANUAL) 0 % (0-6); LYMPHOCYTES % (MANUAL) 0 % (13-45); TOTAL CELLS COUNTED 100
[2016-10-29 07:00] LABS: OVALOCYTES 1+; POIKILOCYTOSIS SLIGHT; TOXIC VACUOLATION PRESENT
[2016-10-29] MEDS: IPRATROPIUM/ALBUTEROL 0.5-2.5 MG/3 ML AMPUL NEB SCH ×3 (08:32→20:43)
[2016-10-29] MEDS: AZITHROMYCIN 500 MG in DEXTROSE 5%-WATER 250 ML IV SCH (10:50)
[2016-10-29] MEDS: HEPARIN SOD (PORCINE) 5,000 UNIT/ML 1 ML SYRINGE SUBCUT SCH ×2 (10:50→21:58)
[2016-10-29] MEDS: POTASSIUM CHLORIDE 10 MEQ TABLET.SA PO SCH ×2 (10:50→21:58)
[2016-10-29] MEDS: FAMOTIDINE 20 MG TABLET PO SCH (10:50)
--- NOTE | 2016-10-29 11:25 | PDOC PROGRESS REPORT ---
Subjective Progress Note for:: 10/29/16 Subjective:: Complains of cough. Physical Exam Vital Signs: Temp Pulse Resp BP Pulse Ox 97.9 F 89 18 137/78 H 98 10/29/16 07:59 10/29/16 08:32 10/29/16 08:32 10/29/16 07:59 10/29/16 08:32 Intake & Output 10/28/16 10/29/16 10/30/16 06:59 06:59 06:59 Intake Total 5007 2940 Output Total 450 550 Balance 4557 2390 Weight 71.6 kg 78.4 kg General appearance: PRESENT: no acute distress Eye exam: PRESENT: conjunctiva pink. ABSENT: scleral icterus Mouth exam: PRESENT: moist, tongue midline Neck exam: ABSENT: JVD Respiratory exam: PRESENT: rhonchi - Coarse rhonchi bilaterally.. ABSENT: rales , wheezes Cardiovascular exam: PRESENT: RRR. ABSENT: diastolic murmur, rubs, systolic murmur GI/Abdominal exam: PRESENT: normal bowel sounds, soft. ABSENT: distended, guarding, mass, organolmegaly, rebound, tenderness Extremities exam: ABSENT: calf tenderness, clubbing, pedal edema Neurological exam: PRESENT: alert, awake, oriented to person, oriented to place , oriented to time, oriented to situation, CN II-XII grossly intact. ABSENT: motor sensory deficit Psychiatric exam: PRESENT: appropriate affect Skin exam: PRESENT: dry, intact, warm. ABSENT: cyanosis, rash Results Laboratory Results: 10/29/16 06:11 10/29/16 06:11 10/29/16 10/29/16 06:11 06:11 WBC 10.6 H RBC 3.42 L Hgb 10.2 L Hct 30.6 L MCV 90 MCH 29.9 MCHC 33.4 RDW 13.8 Plt Count 165 Seg Neutrophils % Not Reportable Lymphocytes % Not Reportable Monocytes % Not Reportable Eosinophils % Not Reportable Basophils % Not Reportable Absolute Neutrophils Not Reportable Absolute Lymphocytes Not Reportable Absolute Monocytes Not Reportable Absolute Eosinophils Not Reportable Absolute Basophils Not Reportable Sodium 139.8 Potassium 3.1 L Chloride 112 H Carbon Dioxide 16 L Anion Gap 12 BUN 13 Creatinine 0.94 Est GFR ( Amer) > 60 Est GFR (Non-Af Amer) > 60 Glucose 123 H Calcium 8.3 L 10/26/16 10/26/16 10/26/16 08:54 08:54 15:25 Creatine Kinase 347 H 274 H CK-MB (CK-2) 11.10 H Troponin I 0.036 10/26/16 15:25 Creatine Kinase CK-MB (CK-2) 8.48 H Troponin I 0.027 Impressions: Head CT 10/26/16 02:52 IMPRESSION: NORMAL BRAIN CT WITHOUT CONTRAST. Chest X-Ray 10/26/16 04:25 IMPRESSION: Mild mixed interstitial and airspace opacity may indicate pulmonary edema or pneumonia. Left central line. Assessment & Plan - Diagnosis (1) Septic shock Is this a current diagnosis for this admission?: YesPlan: Patient has septic shock from pneumonia. Patient has been started on Zithromax and Zosyn. Continue IV fluids. (2) Pneumonia Qualifiers: Pneumonia type: due to unspecified organism Laterality: unspecified laterality Lung location: unspecified part of lung Qualified Code(s) : J18.9 - Pneumonia, unspecified organism Is this a current diagnosis for this admission?: YesPlan: The patient has multi-lobar pneumonia. This most likely is infection with gram- negative rods given the clinical picture. Continue with Zithromax and Zosyn. (3) ARF (acute renal failure) Qualifiers: Acute renal failure type: unspecified Qualified Code(s): N17.9 - Acute kidney failure, unspecified Is this a current diagnosis for this admission?: YesPlan: Secondary to sepsis. This has resolved with IV fluids. (4) COPD exacerbation Is this a current diagnosis for this admission?: YesPlan: Continue with nebulizers and steroids. (5) Takotsubo cardiomyopathy Is this a current diagnosis for this admission?: YesPlan: Patient had recent heart catheterization recently that showed normal coronary arteries. (6) Anemia Qualifiers: Anemia type: unspecified type Qualified Code(s): D64.9 - Anemia, unspecified Is this a current diagnosis for this admission?: YesPlan: We'll continue to monitor hemoglobin. Most likely is anemia of chronic disease. (7) Hyponatremia Is this a current diagnosis for this admission?: YesPlan: Most likely secondary to the underlying pneumonia and sepsis. (8) Metabolic acidosis Is this a current diagnosis for this admission?: YesPlan: Acute metabolic acidosis most likely secondary to the sepsis. This is improved with IV fluids. (9) Hypokalemia Is this a current diagnosis for this admission?: YesPlan: We'll give oral replacement potassium - Time Time Spent with patient: 25-34 minutes - Inpatient Certification Medical Necessity: Need for IV Antibiotics
[2016-10-29] MEDS: TRAZODONE HCL 50 MG TABLET PO SCH (21:58)
[2016-10-29] MEDS: PRAMIPEXOLE DI-HCL 0.5 MG TABLET PO SCH (22:09)
[2016-10-29] MEDS ORDERED: TRAZODONE HCL 50 MG TABLET PO ONE (23:00)
[2016-10-30] MEDS: METHYLPREDNISOLONE INJ 125 MG/2 ML SDV IV SCH (01:13)
[2016-10-30 04:54] LABS: HEMATOCRIT 28.4 % (36.0-47.0); HEMOGLOBIN 9.8 g/dL (12.0-15.5); MEAN CORPUSCULAR HEMOGLOBIN 30.4 pg (27.0-33.4); MEAN CORPUSCULAR HGB CONC 34.4 g/dL (32.0-36.0); MEAN CORPUSCULAR VOLUME 88 fl (80-97); RED BLOOD COUNT 3.21 10^6/uL (3.72-5.28); RED CELL DISTRIBUTION WIDTH 14.2 % (11.5-14.0); WHITE BLOOD COUNT 9.2 10^3/uL (4.0-10.5)
[2016-10-30] MEDS: PIPERACILLIN SODIUM/TAZOBACTAM 4.5 GM in NORMAL SALINE 100 ML IV SCH (05:04)
[2016-10-30 05:28] LABS: BAND NEUTROPHILS % (MANUAL) 1 % (3-5); BASOPHILS % (MANUAL) 0 % (0-2); EOSINOPHILS % (MANUAL) 0 % (0-6); LYMPHOCYTES % (MANUAL) 4 % (13-45); NUCLEATED RED BLOOD CELLS 1 /100 WBC (0); TOTAL CELLS COUNTED 100
[2016-10-30 05:30] LABS: ANION GAP 9 (5-19); ANISOCYTOSIS SLIGHT; BLOOD UREA NITROGEN 13 mg/dL (7-20); CALCIUM 8.5 mg/dL (8.4-10.2); CARBON DIOXIDE 20 mmol/L (22-30); CHLORIDE 113 mmol/L (98-107); CREATININE RESULT 0.91 mg/dL (0.52-1.25); GLUCOSE 131 mg/dL (75-110); POTASSIUM 3.5 mmol/L (3.6-5.0); SODIUM 141.8 mmol/L (137-145); TOXIC GRANULATION SLIGHT
[2016-10-30 05:32] LABS: OVALOCYTES 1+
[2016-10-30 05:34] LABS: BURR CELLS 2+; POIKILOCYTOSIS 2+
[2016-10-30 05:35] LABS: TOXIC VACUOLATION PRESENT
[2016-10-30] MEDS: IPRATROPIUM/ALBUTEROL 0.5-2.5 MG/3 ML AMPUL NEB SCH ×3 (08:44→20:21)
[2016-10-30] MEDS: FAMOTIDINE 20 MG TABLET PO SCH (09:24)
[2016-10-30] MEDS: POTASSIUM CHLORIDE 10 MEQ TABLET.SA PO SCH ×2 (09:24→21:31)
[2016-10-30] MEDS: HEPARIN SOD (PORCINE) 5,000 UNIT/ML 1 ML SYRINGE SUBCUT SCH ×2 (09:27→21:31)
[2016-10-30] MEDS: AZITHROMYCIN 500 MG in DEXTROSE 5%-WATER 250 ML IV SCH (09:27)
[2016-10-30] MEDS: PREDNISONE 20 MG TABLET PO SCH (09:49)
[2016-10-30] MEDS ORDERED: TRAZODONE HCL 50 MG TABLET PO ONE (10:30)
--- NOTE | 2016-10-30 10:49 | PDOC PROGRESS REPORT ---
Subjective Progress Note for:: 10/30/16 Subjective:: Complains of anxiety secondary to steroids. Physical Exam Vital Signs: Temp Pulse Resp BP Pulse Ox 97.5 F 92 18 140/76 H 98 10/30/16 07:38 10/30/16 08:44 10/30/16 08:44 10/30/16 07:38 10/30/16 08:44 Intake & Output 10/29/16 10/30/16 10/31/16 06:59 06:59 06:59 Intake Total 2940 2691 Output Total 550 1700 Balance 2390 991 Weight 78.4 kg 78.8 kg General appearance: PRESENT: no acute distress Eye exam: PRESENT: conjunctiva pink. ABSENT: scleral icterus Mouth exam: PRESENT: moist, tongue midline Neck exam: ABSENT: JVD Respiratory exam: PRESENT: clear to auscultation [place]. ABSENT: rales, rhonchi, wheezes Cardiovascular exam: PRESENT: RRR. ABSENT: diastolic murmur, rubs, systolic murmur GI/Abdominal exam: PRESENT: normal bowel sounds, soft. ABSENT: distended, guarding, mass, organolmegaly, rebound, tenderness Extremities exam: ABSENT: calf tenderness, clubbing, pedal edema Neurological exam: PRESENT: alert, awake, oriented to person, oriented to place , oriented to time, oriented to situation, CN II-XII grossly intact. ABSENT: motor sensory deficit Psychiatric exam: PRESENT: anxious Skin exam: PRESENT: dry, intact, warm. ABSENT: cyanosis, rash Results Laboratory Results: 10/30/16 04:14 10/30/16 04:14 10/30/16 10/30/16 04:14 04:14 WBC 9.2 RBC 3.21 L Hgb 9.8 L Hct 28.4 L MCV 88 MCH 30.4 MCHC 34.4 RDW 14.2 H Plt Count 165 Seg Neutrophils % Not Reportable Lymphocytes % Not Reportable Monocytes % Not Reportable Eosinophils % Not Reportable Basophils % Not Reportable Absolute Neutrophils Not Reportable Absolute Lymphocytes Not Reportable Absolute Monocytes Not Reportable Absolute Eosinophils Not Reportable Absolute Basophils Not Reportable Sodium 141.8 Potassium 3.5 L Chloride 113 H Carbon Dioxide 20 L Anion Gap 9 BUN 13 Creatinine 0.91 Est GFR ( Amer) > 60 Est GFR (Non-Af Amer) > 60 Glucose 131 H Calcium 8.5 10/26/16 10/26/16 10/26/16 08:54 08:54 15:25 Creatine Kinase 347 H 274 H CK-MB (CK-2) 11.10 H Troponin I 0.036 10/26/16 15:25 Creatine Kinase CK-MB (CK-2) 8.48 H Troponin I 0.027 Impressions: Head CT 10/26/16 02:52 IMPRESSION: NORMAL BRAIN CT WITHOUT CONTRAST. Chest X-Ray 10/26/16 04:25 IMPRESSION: Mild mixed interstitial and airspace opacity may indicate pulmonary edema or pneumonia. Left central line. Assessment & Plan - Diagnosis (1) Septic shock Is this a current diagnosis for this admission?: YesPlan: Patient has septic shock from pneumonia. Patient has been on Zithromax and Zosyn. We'll switch to by mouth Augmentin. (2) Pneumonia Qualifiers: Pneumonia type: due to unspecified organism Laterality: unspecified laterality Lung location: unspecified part of lung Qualified Code(s) : J18.9 - Pneumonia, unspecified organism Is this a current diagnosis for this admission?: YesPlan: The patient has multi-lobar pneumonia. This most likely is infection with gram- negative rods given the clinical picture. She continues to improve and we will switch to by mouth Augmentin. (3) ARF (acute renal failure) Qualifiers: Acute renal failure type: unspecified Qualified Code(s): N17.9 - Acute kidney failure, unspecified Is this a current diagnosis for this admission?: YesPlan: Secondary to sepsis. This has resolved with IV fluids. (4) COPD exacerbation Is this a current diagnosis for this admission?: YesPlan: Continue with nebulizers and steroids. She is improved and has no further wheezing. Because of this we will switch to prednisone and DC the Solu-Medrol. (5) Takotsubo cardiomyopathy Is this a current diagnosis for this admission?: YesPlan: Patient had recent heart catheterization recently that showed normal coronary arteries. (6) Anemia Qualifiers: Anemia type: unspecified type Qualified Code(s): D64.9 - Anemia, unspecified Is this a current diagnosis for this admission?: YesPlan: We'll continue to monitor hemoglobin. Most likely is anemia of chronic disease. (7) Hyponatremia Is this a current diagnosis for this admission?: YesPlan: Most likely secondary to the underlying pneumonia and sepsis. (8) Metabolic acidosis Is this a current diagnosis for this admission?: YesPlan: Acute metabolic acidosis most likely secondary to the sepsis. This is improved with IV fluids. (9) Hypokalemia Is this a current diagnosis for this admission?: YesPlan: We'll give oral replacement potassium (10) Anxiety Is this a current diagnosis for this admission?: YesPlan: Patient has requested trazodone to help with her anxiety. - Time Time Spent with patient: 25-34 minutes - Inpatient Certification Medical Necessity: Need Close Monitoring Due to Risk of Patient Decompensation - Plan Summary Plan Summary: If she continues to improve she can hopefully be discharged home tomorrow.
[2016-10-30] MEDS: AMOXICILLIN TR/POT CLAVULANATE 500-125 MG TAB PO SCH ×2 (13:36→21:32)
[2016-10-30] MEDS: TRAZODONE HCL 50 MG TABLET PO SCH (21:32)
[2016-10-30] MEDS: PRAMIPEXOLE DI-HCL 0.5 MG TABLET PO SCH (21:33)
[2016-10-31 05:03] LABS: HEMATOCRIT 27.2 % (36.0-47.0); HEMOGLOBIN 9.3 g/dL (12.0-15.5); HGB HCT DIFFERENCE 0.7; MEAN CORPUSCULAR HEMOGLOBIN 29.9 pg (27.0-33.4); MEAN CORPUSCULAR HGB CONC 34.2 g/dL (32.0-36.0); MEAN CORPUSCULAR VOLUME 88 fl (80-97)
[2016-10-31 05:25] LABS: BLOOD UREA NITROGEN 11 mg/dL (7-20); CALCIUM 8.6 mg/dL (8.4-10.2); CREATININE RESULT 0.76 mg/dL (0.52-1.25); GLUCOSE 81 mg/dL (75-110)
[2016-10-31 05:26] LABS: ANION GAP 7 (5-19); CARBON DIOXIDE 21 mmol/L (22-30); CHLORIDE 112 mmol/L (98-107); POTASSIUM 3.3 mmol/L (3.6-5.0); SODIUM 140.2 mmol/L (137-145)
[2016-10-31 05:32] LABS: BAND NEUTROPHILS % (MANUAL) 1 % (3-5); BASOPHILS % (MANUAL) 0 % (0-2); EOSINOPHILS % (MANUAL) 0 % (0-6); LYMPHOCYTES % (MANUAL) 8 % (13-45); TOTAL CELLS COUNTED 100
[2016-10-31 05:35] LABS: ANISOCYTOSIS SLIGHT; BURR CELLS 2+; OVALOCYTES 1+; POIKILOCYTOSIS 1+; TEAR DROP CELLS SLIGHT; TOXIC GRANULATION SLIGHT
[2016-10-31] MEDS: AMOXICILLIN TR/POT CLAVULANATE 500-125 MG TAB PO SCH (05:54)
[2016-10-31] MEDS: IPRATROPIUM/ALBUTEROL 0.5-2.5 MG/3 ML AMPUL NEB SCH (09:01)
[2016-10-31] MEDS: PREDNISONE 20 MG TABLET PO SCH (10:44)
[2016-10-31] MEDS: HEPARIN SOD (PORCINE) 5,000 UNIT/ML 1 ML SYRINGE SUBCUT SCH (10:44)
[2016-10-31] MEDS: FAMOTIDINE 20 MG TABLET PO SCH (10:45)
[2016-10-31] MEDS: POTASSIUM CHLORIDE 10 MEQ TABLET.SA PO SCH (10:45)
--- NOTE | 2016-10-31 12:32 | PDOC DISCHARGE SUMMARY ---
General - Admit/Disc Date/PCP Admission Date/Primary Care Provider: 10/26/16 07:42 STEPHY MARTINEZ [facility] Discharge Date: 10/31/16 - Discharge Diagnosis (1) Septic shock Is this a current diagnosis for this admission?: Yes (2) Pneumonia Is this a current diagnosis for this admission?: Yes (3) ARF (acute renal failure) Is this a current diagnosis for this admission?: Yes (4) Anxiety Is this a current diagnosis for this admission?: Yes (5) COPD exacerbation Is this a current diagnosis for this admission?: Yes (6) Takotsubo cardiomyopathy Is this a current diagnosis for this admission?: Yes (7) Anemia Is this a current diagnosis for this admission?: Yes - Additional Information Resuscitation Status: Full Code Discharge Diet: Cardiac Discharge Activity: Activity As Tolerated Home Medications: Albuterol Sulfate [Proair HFA] 2 puff IH Q4HP PRN 10/26/16 Aspirin [Aspirin 81 mg Chewable Tablet] 81 mg PO QAM 10/26/16 Atorvastatin Calcium [Lipitor 80 mg Tablet] 80 mg PO QPM 10/26/16 Cyanocobalamin (Vitamin B-12) [Vitamin B-12 Inj 1000 Mcg/1 ml Vial] 1,000 mcg IM .MONTHLY 10/26/16 Cyclobenzaprine HCl [Flexeril 10 mg Tablet] 10 mg PO TIDP PRN 10/26/16 Doxepin HCl [Silenor] 6 mg PO QHS 10/26/16 Esomeprazole Mag Trihydrate [Nexium] 40 mg PO QAM 10/26/16 Fluticasone/Salmeterol [Advair 500-50 Diskus 28 Dose] 1 inh IH Q12 10/26/16 Furosemide [Lasix] 20 mg PO DAILY 10/26/16 Hydroxyzine Pamoate [Vistaril 50 mg Capsule] 50 mg PO Q6HP PRN 10/26/16 Levalbuterol Tartrate [Xopenex Hfa] 1 puff IH Q4HP PRN 10/26/16 Linaclotide [Linzess] 145 mcg PO DAILY 10/26/16 Lisinopril [Zestril] 2.5 mg PO DAILY 10/26/16 Loratadine [Claritin 10 mg Tablet] 10 mg PO DAILY 10/26/16 Losartan Potassium [Cozaar 50 mg Tablet] 50 mg PO DAILY 10/26/16 Magnesium Oxide [Mag-Ox 400 mg Tablet] 400 mg PO DAILY 10/26/16 Metformin HCl [Glucophage] 500 mg PO [id number] 10/26/16 Metoprolol Tartrate [Lopressor 25 mg Tablet] 25 mg PO Q12 10/26/16 Montelukast Sodium [Singulair 10 mg Tablet] 10 mg PO DAILY 10/26/16 Ondansetron HCl [Zofran] 8 mg PO TIDP PRN 10/26/16 Potassium Chloride [K-Tab ER] 8 meq PO DAILY 10/26/16 Pramipexole Di-HCl [Mirapex 0.5 mg Tablet] 0.5 mg PO QHS 10/26/16 Tizanidine HCl [Zanaflex 4 mg Tablet] 4 mg PO Q6 10/26/16 Tramadol HCl [Ultram] 100 mg PO BIDP PRN 10/26/16 Amox Tr/Potassium Clavulanate [Augmentin "500" Tablet] 1 tab PO Q8 #21 tablet 10/31/16 Buspirone HCl [Buspar 10 mg Tablet] 10 mg PO QHS #30 tablet 10/31/16 Prednisone [Deltasone 20 mg Tablet] 40 mg PO DAILY #7 tablet 10/31/16 History of Present Illness History of Present Illness: ANNA JOHNSON is a 61 year old female Hospital Course Hospital Course: Patient was basically admitted for septic shock secondary to pneumonia. She also had exacerbation of COPD. She was treated with IV antibiotics and IV steroids. Her condition improved and she has now been transitioned to oral antibiotics and oral steroids. She remained stable on oral regimen. Room air O2 sat is normal. Physical Exam Vital Signs: Temp Pulse Resp BP Pulse Ox 98.0 F 104 H 18 128/74 H 95 10/31/16 08:19 10/31/16 09:01 10/31/16 09:01 10/31/16 08:19 10/31/16 09:01 Intake & Output 10/30/16 10/31/16 11/01/16 06:59 06:59 06:59 Intake Total 2691 2310 Output Total 1700 3100 Balance 991 -790 Weight 78.8 kg 75.6 kg GENERAL: No acute distress HEENT: Conjunctiva clear, nonicteric, moist mucous membranes, no JVD, midline trachea RESPIRATORY: scattered bilateral rhonchi CARDIAC: Regular rate and rhythm, no murmurs/gallops/rubs ABDOMEN: Soft, nondistended, nontender, positive bowel sounds, no rebound, no guarding EXTREMETIES: No edema, cyanosis, clubbing NEUROLOGIC: Alert, oriented to person/place/time, CN's grossly intact, no focal deficits SKIN: No rash, wounds PSYCH: Normal mood, normal affect Results Laboratory Results: 10/31/16 04:31 10/31/16 04:31 10/31/16 10/31/16 04:31 04:31 WBC 12.0 H RBC 3.10 L Hgb 9.3 L Hct 27.2 L MCV 88 MCH 29.9 MCHC 34.2 RDW 14.0 Plt Count 185 Seg Neutrophils % Not Reportable Lymphocytes % Not Reportable Monocytes % Not Reportable Eosinophils % Not Reportable Basophils % Not Reportable Absolute Neutrophils Not Reportable Absolute Lymphocytes Not Reportable Absolute Monocytes Not Reportable Absolute Eosinophils Not Reportable Absolute Basophils Not Reportable Sodium 140.2 Potassium 3.3 L Chloride 112 H Carbon Dioxide 21 L Anion Gap 7 BUN 11 Creatinine 0.76 Est GFR ( Amer) > 60 Est GFR (Non-Af Amer) > 60 Glucose 81 Calcium 8.6 10/26/16 10/26/16 10/26/16 08:54 08:54 15:25 Creatine Kinase 347 H 274 H CK-MB (CK-2) 11.10 H Troponin I 0.036 10/26/16 15:25 Creatine Kinase CK-MB (CK-2) 8.48 H Troponin I 0.027 Impressions: Head CT 10/26/16 02:52 IMPRESSION: NORMAL BRAIN CT WITHOUT CONTRAST. Chest X-Ray 10/26/16 04:25 IMPRESSION: Mild mixed interstitial and airspace opacity may indicate pulmonary edema or pneumonia. Left central line. Qualifiers PATEINT BEING DISCHARGED WITH ANY OF THE FOLLOWING DIAGNOSIS?: No Plan Time Spent: Less than 30 Minutes
[2016-10-31 14:29] VITALS: BP 128/74
== END 2016-10-31 14:51 | disposition home or self-care (01) | DRG 871 ==
LOC: ER 02:43 → UNDOADMIN 06:41 → EH 06:41 → ICU 10:30 → 3S 10-27 20:11
PROVIDERS: ADMIT Family Medicine; ATTEND Family Medicine
PROC: 02HV33Z Insertion of Infusion Device into Superior Vena Cava, Percutaneous Approach (ICD-10-PCS; principal; 2016-10-26)
DX: A41.9 Sepsis, unspecified organism (principal); J18.9 Pneumonia, unspecified organism; R65.21 Severe sepsis with septic shock; J44.0 Chronic obstructive pulmonary disease with (acute) lower respiratory infection; J44.1 Chronic obstructive pulmonary disease with (acute) exacerbation; N17.9 Acute kidney failure, unspecified; I51.81 Takotsubo syndrome; E87.2 Acidosis; I11.0 Hypertensive heart disease with heart failure; I50.9 Heart failure, unspecified; G47.30 Sleep apnea, unspecified; E11.9 Type 2 diabetes mellitus without complications; K22.0 Achalasia of cardia; K21.9 Gastro-esophageal reflux disease without esophagitis; I25.2 Old myocardial infarction; M19.90 Unspecified osteoarthritis, unspecified site; F32.9 Major depressive disorder, single episode, unspecified; E87.5 Hyperkalemia; D64.9 Anemia, unspecified; F41.9 Anxiety disorder, unspecified; Z87.440 Personal history of urinary (tract) infections; Z86.14 Personal history of Methicillin resistant Staphylococcus aureus infection; Z90.710 Acquired absence of both cervix and uterus; Z98.84 Bariatric surgery status; Z82.49 Family history of ischemic heart disease and other diseases of the circulatory system; Z79.82 Long term (current) use of aspirin; Z79.899 Other long term (current) drug therapy; Z79.84 Long term (current) use of oral hypoglycemic drugs; Z88.1 Allergy status to other antibiotic agents; Z83.3 Family history of diabetes mellitus
CPT/HCPCS: 36415; 51701; 70450; 71010; 80048; 80053; 81001; 82550; 82553; 82962; 83605; 83690; 83735; 84484; 85025; 87040; 87205; 93005; 93010; 94799; 96374; 96375; 99291; C1751; G8996-GN; G8997-GN; G8998-GN; J0456; J0610; J1644; J1815; J2543; J2920; J2930; J3370; J3490; J7030; J7060; J7512; J7620; S0028

== ENCOUNTER → 2017-01-12 | Outpatient (CLI) | payer MEDICARE, BC, OTHER ==
--- NOTE | 2017-01-12 10:37 | RADIOLOGY REPORT (SQ) ---
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 TECHNIQUE: Sagittal and Axial imaging includes T1, T2, STIR and gradient echo sequences. LIMITATIONS: None. FINDINGS: ALIGNMENT: Normal. VERTEBRAE: Intact. BONE MARROW: Normal. No marrow replacement or reactive changes. DISCS: There is mild narrowing of the disc spaces from C4 to C7. HARDWARE: None in the spine. CORD AND BASE OF BRAIN: Normal in size and signal intensity. SOFT TISSUES: No soft tissue masses. C1-C2: No significant spinal stenosis. C2-C3: No significant spinal stenosis or exit foraminal stenosis. C3-C4: No significant spinal stenosis or exit foraminal stenosis. C4-C5: No significant spinal stenosis or exit foraminal stenosis C5-C6: No significant spinal stenosis or exit foraminal stenosis. C6-C7: No significant spinal stenosis or exit foraminal stenosis. C7-T1: No significant spinal stenosis or exit foraminal stenosis. UPPER THORACIC: Incompletely imaged. No significant spinal stenosis or exit foraminal stenosis. OTHER: No other significant finding. IMPRESSION: There is mild narrowing of cervical disc spaces as described. There is no significant c entral canal or foraminal stenosis. TECHNICAL DOCUMENTATION: JOB ID: [id number] All Rights Reserved
== END ==
LOC: RAD 07:30
PROVIDERS: ATTEND Neurological Surgery
DX: G62.9 Polyneuropathy, unspecified (principal)
CPT/HCPCS: 72141